=== PATIENT | female | born 2000 | race Caucasian/White ===

== ENCOUNTER 2020-01-14 09:20 | Observation (INO) | payer OTHER ==
[~2020-01-14] VITALS: Ht 160 cm; Wt 67.6 kg
[2020-01-14] MEDS ORDERED: PREN-217 PO (09:53)
[2020-01-14] MEDS ORDERED: FERR-89 PO (09:53)
[2020-01-14 09:54] VITALS: BP 114/68
[2020-01-14] MEDS ORDERED: OXYTOCIN 30 UNITS/LACT RINGERS 500 ML IV ONE (10:22)
[2020-01-14] MEDS ORDERED: RINGERS SOLUTION,LACTATED 1,000 ML IV PRN (10:22)
[2020-01-14] MEDS ORDERED: CITRIC ACID/SODIUM CITRATE 30 ML SOLUTION UDCUP PO PRN (10:30)
[2020-01-14] MEDS ORDERED: METHYLERGONOVINE MALEATE 0.2 MG/ML VIAL IM PRN (10:30)
[2020-01-14] MEDS ORDERED: FentaNYL CITRATE-PF 100 MCG/2 ML VIAL IVP PRN (10:30)
[2020-01-14] MEDS ORDERED: METOCLOPRAMIDE HCL 5 MG/ML 2 ML VIAL IVP PRN (10:30)
[2020-01-14 10:57] LABS: BASOPHILS % (AUTO) 1.3 % (0.0-2.0); EOSINOPHILS % (AUTO) 2.4 % (1.0-6.0); HEMATOCRIT 32.8 % (36-46); HEMOGLOBIN 10.5 g/dL (12.0-16.0); LYMPHOCYTES # (AUTO) 1.9 K/uL (1.0-4.8); LYMPHOCYTES % (AUTO) 20.8 % (22.0-44.0); MEAN CORPUSCULAR HGB CONC 32.1 G/dL (31.0-37.0); MEAN CORPUSCULAR VOLUME 78 fL (80-100); MONOCYTES # (AUTO) 0.6 K/uL (0.1-1.0); MONOCYTES % (AUTO) 6.7 % (2.0-9.0); NEUTROPHILS # (AUTO) 6.1 K/uL (1.8-7.7); NEUTROPHILS % (AUTO) 68.8 % (40.0-70.0); PLATELET COUNT (AUTO)-OB 334 K/uL (150-450); RED BLOOD CELL COUNT(AUTO) 4.22 MIL/uL (4.00-5.20); RED CELL DISTRIBUTION WIDTH 14.5 % (11.5-14.5)
[2020-01-14] MEDS ORDERED: DINOPROSTONE 10 MG VAGINAL SUPPOSITORY VG ONE (11:00)
[2020-01-14] MEDS: RINGERS SOLUTION,LACTATED 1,000 ML IV SCH ×2 (11:12→17:06)
[2020-01-14] MEDS ORDERED: INFLUENZA VIRUS VACCINE QVS 2019-20 (3YR+)/PF 60 MCG/0.5 ML SYRINGE IM ONE (15:30)
[2020-01-14] MEDS ORDERED: OXYGEN THERAPY IH SCH (20:00)
[2020-01-14] MEDS ORDERED: -PHARMACY NOTE- MISC ONE (23:00)
[2020-01-14] MEDS ORDERED: MISOPROSTOL 50 MCG TABLET VG PRN (23:20)
[2020-01-14] MEDS: MISOPROSTOL 50 MCG TABLET PO PRN (23:44)
[2020-01-15] MEDS: RINGERS SOLUTION,LACTATED 1,000 ML IV SCH (01:25)
[2020-01-15] MEDS: MISOPROSTOL 50 MCG TABLET PO PRN (03:48)
== END 2020-01-15 09:05 | disposition home or self-care (01) ==
LOC: 4S 09:20 → OBSVTOIN 09:20 → INTOOBSV 09:20 → UNDOADMOB 09:20
PROVIDERS: ADMIT Obstetrics & Gynecology; ATTEND Obstetrics & Gynecology
DX: O98.813 Other maternal infectious and parasitic diseases complicating pregnancy, third trimester (principal); O99.013 Anemia complicating pregnancy, third trimester; D64.9 Anemia, unspecified; Z3A.39 39 weeks gestation of pregnancy
CPT/HCPCS: 36415; 59025; 76811; 81001; 85025; 86850; 86900; 86901; G0378 ×2; J7120 ×2

== ENCOUNTER 2020-01-15 10:15 | Inpatient (IN) | payer OTHER ==
[~2020-01-15] VITALS: Ht 160 cm; Wt 67.1 kg
[~2020-01-15 10:15] MED LIST: FERR-89 PO; PREN-217 PO
[2020-01-15] MEDS ORDERED: RINGERS SOLUTION,LACTATED 1,000 ML IV PRN (11:17)
[2020-01-15] MEDS ORDERED: OXYTOCIN 30 UNITS/LACT RINGERS 500 ML IV ONE (11:17)
[2020-01-15] MEDS ORDERED: LIDOCAINE/PF 1% 30 ML VIAL INJ PRN (11:30)
[2020-01-15] MEDS ORDERED: MINERAL OIL 30 ML UDCUP VG ONE (11:30)
[2020-01-15] MEDS ORDERED: METOCLOPRAMIDE HCL 5 MG/ML 2 ML VIAL IVP PRN (11:30)
[2020-01-15] MEDS ORDERED: MISOPROSTOL 50 MCG TABLET PO SCH (11:30)
[2020-01-15] MEDS ORDERED: AMPICILLIN SODIUM 2 GM/NS 100 ML IV ONE (11:30)
[2020-01-15] MEDS ORDERED: CITRIC ACID/SODIUM CITRATE 30 ML SOLUTION UDCUP PO PRN (11:30)
[2020-01-15] MEDS ORDERED: METHYLERGONOVINE MALEATE 0.2 MG/ML VIAL IM PRN (11:30)
[2020-01-15 11:32] VITALS: BP 116/80
[2020-01-15] MEDS: RINGERS SOLUTION,LACTATED 1,000 ML IV SCH ×3 (11:35→20:20)
[2020-01-15] MEDS ORDERED: INFLUENZA VIRUS VACCINE QVS 2019-20 (3YR+)/PF 60 MCG/0.5 ML SYRINGE IM ONE (12:30)
[2020-01-15 12:38] LABS: BASOPHILS % (AUTO) 0.9 % (0.0-2.0); EOSINOPHILS % (AUTO) 1.6 % (1.0-6.0); HEMATOCRIT 35.2 % (36-46); HEMOGLOBIN 11.3 g/dL (12.0-16.0); LYMPHOCYTES # (AUTO) 1.4 K/uL (1.0-4.8); LYMPHOCYTES % (AUTO) 15.4 % (22.0-44.0); MEAN CORPUSCULAR HEMOGLOBIN 25.1 pg (26.0-34.0); MEAN CORPUSCULAR HGB CONC 32.1 G/dL (31.0-37.0); MEAN CORPUSCULAR VOLUME 78 fL (80-100); MONOCYTES # (AUTO) 0.5 K/uL (0.1-1.0); MONOCYTES % (AUTO) 5.4 % (2.0-9.0); NEUTROPHILS % (AUTO) 76.7 % (40.0-70.0); PLATELET COUNT (AUTO) 310 K/uL (150-450); RED CELL DISTRIBUTION WIDTH 14.9 % (11.5-14.5)
[2020-01-15] MEDS ORDERED: ONDANSETRON HCL 4 MG/2 ML VIAL ONE (13:04)
[2020-01-15] MEDS ORDERED: ONDANSETRON HCL 4 MG/2 ML VIAL IVP PRN ×2 (13:15→16:30)
[2020-01-15] MEDS: FentaNYL CITRATE-PF 100 MCG/2 ML VIAL IVP PRN ×2 (13:47→14:00)
[2020-01-15] MEDS ORDERED: ROPIVACAINE HCL/PF 0.2% 100 ML ED ONE (16:05)
[2020-01-15] MEDS ORDERED: DiphenhydrAMINE HCL 50 MG/ML VIAL IVP PRN (16:30)
[2020-01-15] MEDS ORDERED: ROPIVACAINE HCL/PF 0.2% 100 ML ED PRN (16:30)
[2020-01-15] MEDS: AMPICILLIN SODIUM 1 GM/NS 50 ML IV SCH ×2 (17:27→21:35)
[2020-01-15] MEDS ORDERED: OXYTOCIN 30 UNITS/LACT RINGERS 500 ML IV PRN (17:57)
[2020-01-15] MEDS ORDERED: OXYGEN THERAPY IH SCH (20:00)
[2020-01-16] MEDS: RINGERS SOLUTION,LACTATED 1,000 ML IV SCH (00:24)
[2020-01-16] MEDS: AMPICILLIN SODIUM 1 GM/NS 50 ML IV SCH (01:02)
[2020-01-16] MEDS ORDERED: RINGERS SOLUTION,LACTATED 1,000 ML IV ONE (01:58)
[2020-01-16] MEDS ORDERED: LANOLIN 7 GM OINTMENT TP PRN (02:00)
[2020-01-16] MEDS ORDERED: BENZOCAINE 20%/MENTHOL 56 GM SPRAY CANISTER TP PRN (02:00)
[2020-01-16] MEDS ORDERED: MEASLES/MUMPS/RUBELLA VACCINE, LIVE 0.5 ML/VIAL SQ ONE (02:00)
[2020-01-16] MEDS ORDERED: GLYCERIN/WITCH HAZEL LEAF 40 PADS JAR TP PRN (02:00)
[2020-01-16] MEDS ORDERED: OxyCODONE HCL/ACETAMINOPHEN 5-325 MG TABLET PO PRN ×2 (02:00)
[2020-01-16] MEDS: IBUPROFEN 600 MG TABLET PO PRN ×2 (05:58→19:47)
[2020-01-16] MEDS: MAGNESIUM HYDROXIDE SUSPENSION 30 ML UDCUP PO SCH ×2 (08:14→19:47)
[2020-01-17] MEDS: IBUPROFEN 600 MG TABLET PO PRN (08:01)
[2020-01-17] MEDS ORDERED: IBUP-2071 PO (08:56)
[2020-01-17] MEDS ORDERED: FERR-89 PO (08:59)
== END 2020-01-17 14:20 | disposition home or self-care (01) | DRG 807 ==
LOC: OBSVTOIN 10:15 → 4S 10:15
PROVIDERS: ADMIT Obstetrics & Gynecology; ATTEND Obstetrics & Gynecology
PROC: 3E02340 Introduction of Influenza Vaccine into Muscle, Percutaneous Approach (ICD-10-PCS; 2020-01-15)
PROC: 10E0XZZ Delivery of Products of Conception, External Approach (ICD-10-PCS; principal; 2020-01-16)
PROC: 0HQ9XZZ Repair Perineum Skin, External Approach (ICD-10-PCS; 2020-01-16)
PROC: 3E0R3BZ Introduction of Anesthetic Agent into Spinal Canal, Percutaneous Approach (ICD-10-PCS; 2020-01-16)
PROC: 00HU33Z Insertion of Infusion Device into Spinal Canal, Percutaneous Approach (ICD-10-PCS; 2020-01-16)
DX: O99.824 Streptococcus B carrier state complicating childbirth (principal); Z37.0 Single live birth; O70.0 First degree perineal laceration during delivery; Z3A.40 40 weeks gestation of pregnancy; Z23 Encounter for immunization
CPT/HCPCS: 86850; 86900; 86901; 90686; J0290; J2405; J2590; J2795; J3010; J7120